=== PATIENT | male | born 1965 | race Caucasian/White ===

== ENCOUNTER → 2017-07-05 | Day surgery (SDC) | payer OTHER ==
[2017-07-04 12:58] LABS: BASOPHILS % 0.7 % (0.0-1.0); EOSINOPHILS # (AUTO) 0.2 (0.0-0.4); HEMATOCRIT 50.9 % (38.2-49.6); HEMOGLOBIN 16.9 g/dL (14.0-18.0); LYMPHOCYTES # (AUTO) 0.9 (1.0-3.2); LYMPHOCYTES % 15.2 % (18.0-39.1); MEAN CORPUSCULAR HEMOGLOBIN 27.3 pg (28-32); MEAN CORPUSCULAR HGB CONC 33.2 g/dL (31-35); MEAN CORPUSCULAR VOLUME 82.1 fL (81-99); MONOCYTES # (AUTO) 0.8 (0.2-0.8); MONOCYTES % 14.1 % (4.4-11.3); NEUTROPHILS # (AUTO) 3.7 (2.1-6.9); NEUTROPHILS % 66.6 % (38.7-80.0); PLATELET COUNT 201 x10e3/uL (140-360)
[2017-07-04 13:10] LABS: INR 0.96
[2017-07-04 13:18] LABS: ALANINE AMINOTRANSFERASE 108 IU/L (0-55); ALKALINE PHOSPHATASE 71 IU/L (40-150); ANION GAP 15.4 mmol/L (8-16); BLOOD UREA NITROGEN 16 mg/dL (7-26); BUN/CREATININE RATIO 14 (6-25); CARBON DIOXIDE 29 mmol/L (22-29); CHLORIDE 99 mmol/L (98-107); CREATININE, SERUM 1.17 mg/dL (0.72-1.25); EST GLOMERULAR FILTRATION RATE > 60 ML/MIN (60-); GLUCOSE 94 mg/dL (74-118); POTASSIUM 4.4 mmol/L (3.5-5.1); SODIUM 139 mmol/L (136-145)
[~2017-07-05] VITALS: Ht 180.3 cm; Wt 105.7 kg
[~2017-07-05] MED LIST: ALEVE220 M1 PO; ANASTROZOLE1 MG PO; BENZOCAINE 20% SPR 60 ML CAN ONE; BREO ELLIPTA 100/25 IH; COQ-10100 MG PO; CRESTOR10 MG PO; FENTANYL CITRATE/PF 100MCG/2 ML INJ ONE; FISH OIL 500 M1 EAC1 PO; LIDOCAINE 1% W/EPINEPHRINE 20 ML VIAL ONE; LIDOCAINE HCL 2% LOCAL INJ 5 ML SDV VIAL INJ ONE; LOSARTAN-HCTZ1 EACH PO; NIACIN500 M2 PO; PROPOFOL IV EMULSION 10 MG/ML 20 ML VIAL ONE; SINGULAIR10 MG PO; SODIUM CHLORIDE 0.9% 1000ML 1,000 ML ONE; TESTOSTERO100 MG/1 M SQ
[2017-07-05 13:16] VITALS: BP 148/88
[2017-07-05 14:00] VITALS: BP 138/80
[2017-07-05 14:15] VITALS: BP 138/76
[2017-07-05 14:30] VITALS: BP 134/74
[2017-07-05 14:45] VITALS: BP 128/70
[2017-07-05 15:00] VITALS: BP 132/80
--- NOTE | 2017-07-05 15:14 | Operative Report ---
DATE OF PROCEDURE: July 05, 2017 INDICATIONS: Atrial fibrillation. PROCEDURE PERFORMED: Insertable loop recorder. Left anterior chest was anesthetized using subcutaneous lidocaine. A FluxDrive LINQ serial number [id number] was inserted without any complications. Skin approximated using Dermabond. Patient discharged home same day. Job#: [id number]
== END | disposition home or self-care (01) ==
LOC: CATH LAB 12:34
PROVIDERS: ATTEND Internal Medicine Interventional Cardiology
DX: I48.91 Unspecified atrial fibrillation (principal); I10 Essential (primary) hypertension; J45.909 Unspecified asthma, uncomplicated; G47.33 Obstructive sleep apnea (adult) (pediatric); F41.9 Anxiety disorder, unspecified; I73.9 Peripheral vascular disease, unspecified; Z01.810 Encounter for preprocedural cardiovascular examination; Z01.812 Encounter for preprocedural laboratory examination; Z87.442 Personal history of urinary calculi
CPT/HCPCS: 33282; 36415; 80053; 85025; 85610; 93005; 93320; 93325; C1764; J2001; J7030

== ENCOUNTER → 2019-04-28 | Day surgery (SDC) | payer OTHER ==
--- NOTE | 2019-04-27 14:56 | NUR ---
Dr. Moran notified of labs faxed from physician office are from 03/20/2019. Dr. Moran ordered CBC, CMP, PT/INR to be drawn on day of procedure.
[2019-04-28] VITALS (8 sets, daily range): BP systolic 113–143; BP diastolic 60–87
[~2019-04-28] VITALS: Ht 180.3 cm; Wt 124.7 kg
[~2019-04-28] MED LIST changes: +ALPRAZOLAM 0.5 MG TAB ONE; +ASPIR 8181 MG PO; -BENZOCAINE 20% SPR 60 ML CAN ONE; +BREO ELLIPTA 11 EACH INH; +CALCIUM-MAGNES1 EAC6 PO; +DIPHENHYDRAMINE HCL 25 MG CAP ONE; +FOLIC ACID PO; +HEPARIN SOD/SOD CHLORIDE 2,000 ML ONE; +IOPAMIDOL 370 MG/ML 200 ML INFUS..BTL INJ ONE; -LIDOCAINE 1% W/EPINEPHRINE 20 ML VIAL ONE; +LIDOCAINE HCL 2% LOCAL 20 ML VIAL ONE; -LIDOCAINE HCL 2% LOCAL INJ 5 ML SDV VIAL INJ ONE; +METOPROLOL TART50 MG PO; +MIDAZOLAM HCL 2 MG/2 ML VIAL ONE; +OMEGA 3 FISH O1 EACH PO; +ONE DAILY FOR1 EAC2 PO; -PROPOFOL IV EMULSION 10 MG/ML 20 ML VIAL ONE; +SUDAFED 12 HOU120 MG PO; +VERAPAMIL HCL 2.5 MG/ML 2 ML VIAL ONE
--- OUTSIDE RECORDS SUMMARY | 2019-04-28 06:27 | XMS REPORT | Summary of Care ---
Author Author Jerri Palencia R.N. Organization Unknown Address Unknown Phone Unavailable Care Team Providers Care Analytical Lead Name Role Phone Jerri Palencia R.N. Unavailable Unavailable Functional Status Name Dates Details Functional status health issues are not documented Status: Name Dates Details Cognitive status health issues are not documented Status: Problems Name Dates Details Active medical history not documented Status: Medications Name Dates Details Medications not documented Allergies and Adverse Reactions Name Dates Details Allergy history not documented Status: Procedures Procedure Dates Details Procedures not documented Immunization Name Dates Details Immunizations not documented Social History Name Dates Details Unknown if ever smoked Vital Signs Date Test Result Details No Known Vitals to report Results Date Description Value Details Results not documented Plan of Care Name Dates Details Planned Observations Planned Goals not documented Instructions Name Dates Details Instructions not documented Encounters Appointment; JENNIFER BARNETT M.D. Encounter Diagnosis: Problem not documented On: 29-Jul-2017 10:15 Appointment; JENNIFER BARNETT M.D. Encounter Diagnosis: Problem not documented On: 16-Sep-2017 10:45 Appointment; JENNIFER BARNETT M.D. Encounter Diagnosis: Problem not documented On: 21-Oct-2017 10:30
[2019-04-28 06:51] LABS: BASOPHILS # (AUTO) 0.1 (0.0-0.1); BASOPHILS % 0.8 % (0.0-1.0); EOSINOPHILS # (AUTO) 0.5 (0.0-0.4); EOSINOPHILS % 7.5 % (0.0-6.0); HEMATOCRIT 46.2 % (38.2-49.6); HEMOGLOBIN 15.7 g/dL (14.0-18.0); LYMPHOCYTES % 16.7 % (18.0-39.1); MEAN CORPUSCULAR HEMOGLOBIN 32.4 pg (28-32); MEAN CORPUSCULAR VOLUME 95.3 fL (81-99); MONOCYTES # (AUTO) 0.9 (0.2-0.8); MONOCYTES % 14.5 % (4.4-11.3); NEUTROPHILS # (AUTO) 3.6 (2.1-6.9); PLATELET COUNT 196 x10e3/uL (140-360); RED BLOOD COUNT 4.85 x10e6/uL (4.3-5.7)
[2019-04-28 07:09] LABS: INR 0.85; PROTHROMBIN TIME 12.1 seconds (11.9-14.5)
[2019-04-28 07:20] LABS: ALANINE AMINOTRANSFERASE 94 IU/L (0-55); ALBUMIN 3.9 g/dL (3.5-5.0); ALBUMIN/GLOBULIN RATIO 1.2 (0.8-2.0); ALKALINE PHOSPHATASE 73 IU/L (40-150); ANION GAP 14.7 mmol/L (8-16); BLOOD UREA NITROGEN 14 mg/dL (7-26); BUN/CREATININE RATIO 13 (6-25); CALCIUM 9.7 mg/dL (8.4-10.2); CARBON DIOXIDE 27 mmol/L (22-29); CHLORIDE 102 mmol/L (98-107); CREATININE, SERUM 1.12 mg/dL (0.72-1.25); EST GLOMERULAR FILTRATION RATE > 60 ML/MIN (60-); GLUCOSE 105 mg/dL (74-118); POTASSIUM 3.7 mmol/L (3.5-5.1); SODIUM 140 mmol/L (136-145)
--- NOTE | 2019-04-28 08:40 | NUR ---
0840 am RECEIVING NOTE [facility]............................................................... Bedside report received from MEET Lovell. Identifierx2. Alert oriented and appropriate, PERRLA, respirations even and unlabored to room air. Pulses x4 extremeties equal and strong. Pedal pulses PT/DP X4 and marked. Cap fill brisk < 3 sec. Rt Trband approach ok decrease at 0930a Skin warm and dry integrity appears D/I. IV 20g to left hand at 100cchr, presents healthy w/o s/s of infiltration or complaint. Abdomen soft and supple. pt offered toileting, denies need to urinate or defecate. No personal affects with patient, Family at bedside. Currently w/o complaint of pain or need. te/rn
--- NOTE | 2019-04-28 09:30 | NUR ---
0930am RADIAL COMPRESSION REMOVAL NOTE: Initial Cuff volume 14 cc 0930a -4cc Removed No hematoma/bleeding noted with normal neurovascular function. 0915 -5cc Removed No hematoma/ bleeding noted with normal neurovascular function. 0930 -5cc Removed No hematoma/bleeding noted with normal neurovascular function. Air removal completed. Stasis achieved sterile 2x2,Tegaderm, Coban dressing No hematoma, bleeding noted with normal neurovascular function. Wrist splint in place. Pt instructed on POC. Ds/Rn
--- NOTE | 2019-04-28 10:15 | NUR ---
1015am [facility] DISCHARGE NURSING NOTE Pt meets DC criteria. Skin assessed for s/s of complication and presence of hematoma. Skin warm, dry, no discolor, and pulses present. IV removed from left hand. Distal tip appears intact. VS WNL. Pt denies pain, sob, or need at this time. Family at bs. Review of discharge paperwork and follow up instructions. verbalized understanding. Pt to wheelchair and transported to front of hospital. Transferred to private vehicle under own strength w/o incident with DC paperwork in hand. ds/rn
--- NOTE | 2019-04-28 13:27 | Operative Report ---
DATE OF PROCEDURE: 04/28/2019 SURGEON: Eb Moran MD INDICATIONS: Coronary artery disease, abnormal stress test. PROCEDURES PERFORMED: 1. Left heart catheterization, selective coronary angiography. 2. Deployment of right wrist TR band. COMPLICATIONS: None. RECOMMENDATIONS: Medical therapy. DESCRIPTION OF PROCEDURE: Access was obtained in the right radial artery. Using ultrasound guidance, a 5-Yi sheath was placed. Coronary angiography demonstrated nondominant right coronary artery. Left coronary circumflex artery was a dominant, minimal coronary artery disease, 10% to 20% luminal stenosis. Excellent flow in all vessels. No critical stenosis or occlusions. LV end-diastolic pressure of 34. No gradient across the aortic valve on pullback. Right wrist TR band applied. The patient discharged home the same day. Eb Moran MD [facility] /[id number]
== END | disposition home or self-care (01) ==
LOC: CATH LAB 06:23
PROVIDERS: ATTEND Internal Medicine Interventional Cardiology
DX: I25.10 Atherosclerotic heart disease of native coronary artery without angina pectoris (principal); R94.39 Abnormal result of other cardiovascular function study; E78.00 Pure hypercholesterolemia, unspecified; I10 Essential (primary) hypertension; E78.5 Hyperlipidemia, unspecified; E66.9 Obesity, unspecified; J45.909 Unspecified asthma, uncomplicated; Z01.812 Encounter for preprocedural laboratory examination; Z79.82 Long term (current) use of aspirin; Z68.36 Body mass index [BMI] 36.0-36.9, adult
CPT/HCPCS: 36415; 76937; 80053; 85025; 85610; 93458; C1769; C1887; J2001; J2250; J3010; J7030; Q9967; 99152; 99153

== ENCOUNTER → 2019-05-19 | Outpatient (CLI) | payer OTHER ==
[~2019-05-19] MED LIST changes: -ALPRAZOLAM 0.5 MG TAB ONE; -DIPHENHYDRAMINE HCL 25 MG CAP ONE; -FENTANYL CITRATE/PF 100MCG/2 ML INJ ONE; -HEPARIN SOD/SOD CHLORIDE 2,000 ML ONE; -IOPAMIDOL 370 MG/ML 200 ML INFUS..BTL INJ ONE; -LIDOCAINE HCL 2% LOCAL 20 ML VIAL ONE; -MIDAZOLAM HCL 2 MG/2 ML VIAL ONE; -SODIUM CHLORIDE 0.9% 1000ML 1,000 ML ONE; -VERAPAMIL HCL 2.5 MG/ML 2 ML VIAL ONE
--- NOTE | 2019-05-19 15:07 | Diagnostic Imaging Report ---
EXAM: US LIVER DATE: 05/19/2019 12:42 PM INDICATION: Elevated LFTs COMPARISON: None FINDINGS: The visualized pancreas appears unremarkable. The liver is at the upper limits of normal for size measuring 17.0 cm in length. Hepatic echogenicity is diffusely increased. No focal hepatic abnormality is identified. The main portal vein is patent with antegrade flow and diameter of 1.1 cm, within normal limits. The gallbladder is unremarkable. There is no evidence for cholelithiasis, gallbladder wall thickening, or pericholecystic fluid. There is no intra or extra hepatic biliary ductal dilatation. The common bile duct measures 3 mm. Sonographic Blank's sign is negative. The right kidney is normal in size measuring 11.9 cm in length with normal cortical thickness/echogenicity. There is no evidence for solid renal mass, hydronephrosis, or shadowing calculi. The visualized portions the IVC and aorta are within normal limits. There is no ascites visualized. IMPRESSION: Sonographic findings suggestive of hepatic steatosis. Otherwise, unremarkable right upper quadrant ultrasound examination. Signed by: Dr. Mitchell Garza MD on 05/19/2019 3:04 PM
== END ==
LOC: US 12:34
PROVIDERS: ATTEND Internal Medicine Interventional Cardiology
DX: R94.5 Abnormal results of liver function studies (principal); K76.0 Fatty (change of) liver, not elsewhere classified
CPT/HCPCS: 76705